=== PATIENT | female | born 1970 ===

== ENCOUNTER 2022-01-25 05:45 | Day surgery (SDC) | payer OTHER ==
[~2022-01-25 05:45] MED LIST: CELEXA40 MG PO; LIPITOR20 MG PO; NORVASC5 MG PO
[2022-01-25] MEDS ORDERED: MACROBID 100 M100 MG PO (09:42)
[2022-01-25] MEDS ORDERED: ULTRACET PO (09:43)
== END 2022-01-25 11:40 | disposition home or self-care (01) ==
LOC: CIR.AMB 05:45
PROVIDERS: ATTEND Obstetrics & Gynecology Gynecology
DX: N36.41 Hypermobility of urethra (principal); N39.3 Stress incontinence (female) (male); I10 Essential (primary) hypertension; J45.909 Unspecified asthma, uncomplicated; K21.9 Gastro-esophageal reflux disease without esophagitis